=== PATIENT | male | born 1980 | race Asian ===

== ENCOUNTER 2021-12-26 14:05 | Outpatient (CLI) | payer OTHER ==
--- NOTE | 2021-12-26 16:29 | XRAY Report ---
PROCEDURE: Cervical Spine 2 View INDICATIONS: CERVICAL RADICULOPATHY TECHNIQUE: 3 views of the cervical spine were acquired. COMPARISON: None. FINDINGS: Bones: No acute fractures or dislocations to the C7 level. Straightening of the normal cervical lord osis is nonspecific and may be secondary to positioning. The lateral masses of C1 appear intact on th e odontoid view. No suspicious bony lesions. Soft tissues: No prevertebral soft tissue swelling. IMPRESSION: No acute osseous abnormality. If symptoms persist or there is continued clinical concern , further evaluation with MRI or CT may be helpful. Reviewed by: Esdras Braxton MD on 12/26/2021 4:27 PM PDT Approved by: Esdras Braxton MD on 12/26/2021 4:27 PM PDT Station ID: [id number]
--- NOTE | 2021-12-26 16:55 | XRAY Report ---
PROCEDURE: Chest 2 View X-Ray INDICATIONS: CERVICAL RADICULOPATHY TECHNIQUE: 2 view(s) of the chest. COMPARISON: None. FINDINGS: Surgical changes and devices: None. Lungs and pleura: No pleural effusions or pneumothorax. Lungs are clear. Mediastinum: Mediastinal contours are normal. Heart size is normal. Bones and chest wall: No suspicious bony abnormalities. Soft tissues appear unremarkable. IMPRESSION: No acute cardiopulmonary findings. Reviewed by: Lucina Workman MD on 12/26/2021 4:54 PM PDT Approved by: Lucina Workman MD on 12/26/2021 4:54 PM PDT Station ID: [id number]
== END 2021-12-26 14:06 | disposition home or self-care (01) ==
LOC: DI.N 14:05
PROVIDERS: ATTEND Physician Assistant Medical
DX: M54.12 Radiculopathy, cervical region (principal)